=== PATIENT | female | born 1945 | race Caucasian/White ===

== ENCOUNTER 2019-04-03 13:41 | Emergency (ER) | payer MEDICARE, OTHER ==
[~2019-04-03] VITALS: Ht 170.2 cm; Wt 79.5 kg
[2019-04-03 13:55] VITALS: Ht 170.2 cm; Wt 79.5 kg
[2019-04-03] MEDS ORDERED: AVAPRO150 MG PO (13:57)
[2019-04-03] MEDS ORDERED: PAXIL10 MG PO (13:57)
[2019-04-03] MEDS ORDERED: LOZOL 2.5 MG T2.5 MG PO (13:58)
[2019-04-03] MEDS ORDERED: DEXILANT60 MG PO (13:58)
[2019-04-03] MEDS ORDERED: ZETIA10 MG PO (13:58)
[2019-04-03] MEDS ORDERED: LEVOCETIRIZINE (14:00)
[2019-04-03] MEDS ORDERED: TEMAZEPAM30 MG PO (14:00)
[2019-04-03] MEDS ORDERED: BAYER CHEWABLE81 MG PO (14:00)
[2019-04-03] MEDS ORDERED: [UNRECOGNIZED DRUG - OTHER] (14:02)
[2019-04-03] MEDS ORDERED: ULTRAM50 MG PO (17:50)
[2019-04-03 18:34] VITALS: BP 155/68
== END 2019-04-03 18:35 | disposition home or self-care (01) ==
LOC: EDBD 13:41 → D.ER 13:41
DX: S05.12XA Contusion of eyeball and orbital tissues, left eye, initial encounter (principal); S80.02XA Contusion of left knee, initial encounter; S80.01XA Contusion of right knee, initial encounter; S60.212A Contusion of left wrist, initial encounter; W01.0XXA Fall on same level from slipping, tripping and stumbling without subsequent striking against object, initial encounter; Z86.73 Personal history of transient ischemic attack (TIA), and cerebral infarction without residual deficits; I10 Essential (primary) hypertension